=== PATIENT | female | born 1990 | race Caucasian/White ===

== ENCOUNTER 2017-06-14 09:04 | Emergency (ER) | payer MEDICAID, OTHER ==
[2017-06-14 09:45] VITALS: BP 142/72
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
== END 2017-06-14 11:25 | disposition home or self-care (01) ==
LOC: ED 09:04
DX: S16.1XXA Strain of muscle, fascia and tendon at neck level, initial encounter (principal); V49.9XXA Car occupant (driver) (passenger) injured in unspecified traffic accident, initial encounter; Y93.89 Activity, other specified; Y92.9 Unspecified place or not applicable
CPT/HCPCS: 72125; 99282